=== PATIENT | female | born 1975 | race Caucasian/White ===

== ENCOUNTER 2019-04-26 14:38 | Emergency (ER) | payer OTHER ==
[~2019-04-26] VITALS: Ht 167.6 cm; Wt 86.2 kg
[~2019-04-26 14:38] MED LIST: BUSPAR15 MG PO; ESTRADIOL 1 MG T1 M1 PO; FLONASE 0.05%50 MCG NASAL; IBUPROFEN 800800 M1 PO; NAPROSYN500 MG PO; NORCO 5-325 TA1 EACH PO; WELLBUTRIN SR150 MG PO; ZANAFLEX4 MG PO; ZYRTEC10 M5 PO
[2019-04-26] MEDS ORDERED: EMGALITY120 MG/1 M IM (14:45)
[2019-04-26] MEDS ORDERED: LYRICA 50 MG50 MG PO (14:45)
[2019-04-26] MEDS ORDERED: ALLEGRA ALLERGY60 MG PO (14:45)
[2019-04-26 15:10] LABS: ABSOLUTE BASOPHILS 0.1 thou/uL (0.0-0.2); ABSOLUTE EOSINOPHILS 0.1 thou/uL (0.0-0.7); ABSOLUTE LYMPHOCYTES 2.7 thou/uL (0.8-5.3); ABSOLUTE MONOCYTES 0.6 thou/uL (0.0-1.2); ABSOLUTE NEUTROPHILS 3.9 thou/uL (1.6-8.1); BASOPHILS 1.1 %; EOSINOPHILS 1.1 %; HEMATOCRIT 40.3 % (37.0-47.0); HEMOGLOBIN 14.4 gm/dL (12.0-15.0); LYMPHOCYTES 36.6 %; MCH 31.4 pg (26.0-34.0); MCHC 35.8 g/dL (28.0-37.0); MCV 87.7 fL (80.0-100.0); MONOCYTES 7.9 %; MPV 8.5 fl. (7.2-11.1); NUCLEATED RBCS 0 /100WBC; PLATELET COUNT* 297 thou/uL (150-400); POLYS 53.3 %; RDW-CV 13.5 % (10.5-14.5); WBC 7.4 thou/uL (4.0-11.0)
[2019-04-26 15:20] LABS: CALCIUM 9.1 mg/dL (8.5-10.1); CREATININE 0.8 mg/dL (0.6-1.3); POTASSIUM 3.5 mmol/L (3.5-5.1)
[2019-04-26 15:24] LABS: ALBUMIN 3.8 g/dL (3.4-5.0); TOTAL BILIRUBIN 0.4 mg/dL (<0.1-1.0); TOTAL PROTEIN 6.9 g/dL (6.4-8.2)
[2019-04-26 15:46] LABS: URINE BILIRUBIN NEGATIVE (Negative); URINE BLOOD TRACE (Negative); URINE CLARITY CLEAR; URINE COLOR YELLOW; URINE GLUCOSE-RANDOM NEGATIVE (Negative); URINE KETONES NEGATIVE (Negative); URINE LEUKOCYTES-REFLEX NEGATIVE (Negative); URINE NITRITE-REFLEX NEGATIVE (Negative); URINE PROTEIN NEGATIVE (Negative); URINE SPECIFIC GRAVITY 1.025 (1.005-1.030); URINE UROBILINOGEN 0.2 E.U./dl (0.2-1.0)
[2019-04-26] MEDS ORDERED: OMEPRAZOLE 20 M20 M1 PO (16:39)
[2019-04-26] MEDS ORDERED: NORCO 5-325 TA1 EAC1 PO (16:39)
[2019-04-26] MEDS ORDERED: PEPCID20 MG PO (16:39)
[2019-04-26 16:53] VITALS: BP 122/70
== END 2019-04-26 16:56 | disposition home or self-care (01) ==
LOC: M.ERS 14:38
PROVIDERS: Physician Assistant
DX: R10.11 Right upper quadrant pain (principal); R10.13 Epigastric pain; Z88.1 Allergy status to other antibiotic agents; Z90.710 Acquired absence of both cervix and uterus; Z90.721 Acquired absence of ovaries, unilateral

== ENCOUNTER → 2019-05-29 | Day surgery (SDC) | payer OTHER ==
[~2019-05-29] MED LIST changes: +ALLEGRA ALLERGY60 MG PO; +BENTYL 10 MG CA10 M1 PO; +EMGALITY120 MG/1 M IM; +EMGALITY120 MG/1 M SUBQ; +FLONASE 0.05%50 MCG NARES; +IMITREX4 MG/0.51 SUBQ; +LYRICA 50 MG50 MG PO; +LYRICA 75 MG CA75 MG PO; +NORCO 5-325 TA1 EAC1 PO; +OMEPRAZOLE 20 M20 M1 PO; +PEPCID20 MG PO
[2019-05-29 08:31] LABS: HEMATOCRIT 42.3 % (37.0-47.0); HEMOGLOBIN 15.1 gm/dL (12.0-15.0); MCH 32.1 pg (26.0-34.0); MCHC 35.8 g/dL (28.0-37.0); MCV 89.6 fL (80.0-100.0); MPV 8.6 fl. (7.2-11.1); RBC 4.72 mil/uL (4.20-5.00); RDW-CV 13.3 % (10.5-14.5); WBC 6.5 thou/uL (4.0-11.0)
[2019-05-29 08:43] LABS: CALCIUM 9.2 mg/dL (8.5-10.1); CREATININE 0.8 mg/dL (0.6-1.3); POTASSIUM 3.5 mmol/L (3.5-5.1)
[2019-05-29 08:48] LABS: ALBUMIN 3.9 g/dL (3.4-5.0); TOTAL BILIRUBIN 0.3 mg/dL (<0.1-1.0); TOTAL PROTEIN 7.4 g/dL (6.4-8.2)
--- NOTE | 2019-05-31 17:06 | PATH ---
[facility] [address] [place] [address] PATHOLOGY RPT PROCEDURE Name: JUD JIMENEZ Room: [facility].#: [id number] Admission: 05/29/19 Date of : 75 Discharge: Report #: [id number] Path Case #: [id number] [facility] Accession Number: [id number] . 01 Material submitted: . gallbladder - GALLBLADDER . 01 Clinical history: . Preop DX: CALCULUS OF GALLBLADDER Postop DX: CALCULUS OF GALLBLADDER . 02 Diagnosis: Gallbladder: - Chronic cholecystitis with cholesterolosis. See comment. . (ANN:troy; 05/31/2019) QMS 05/31/2019 1527 Local . 02 Comment: No gallstones are identified in the submitted specimen. . (ANN:troy; 05/31/2019) . 02 Electronically signed: . Jun Gonzalez MD, Pathologist NPI- [id number] . 01 Gross description: . Received in formalin labeled "Jud Jimenez, gallbladder," is an intact, wrinkled gallbladder measuring 6.2 x 2.2 x 1.5 cm in greatest dimensions. The serosal surface is smooth to wrinkled and yellow-green in appearance, displaying scant attached adipose tissue. A defect is noted in the serosal surface, measuring 0.1 x 0.1 cm and extending to within 1.6 cm of the infundibulum. Opening the specimen reveals a dark green mucosa diffusely stippled with prominent yellow highlights and measuring up to 0.2 cm in thickness, with a gallbladder wall thickness of up to 0.2 cm including attached adipose tissue. No polyps or nodules are noted grossly. Calculi are not present within the specimen or specimen container. Sales Order Processor sections of the infundibulum, body and fundus are submitted in cassette A1, to include the serosal surface defect. (DAC; 05/30/2019) XDC/XDC 05/30/2019 08 Local . 02 Pathologist provided ICD-10: K81.1, K82.4 . 02 CPT . [id number] [place] [address] PATHOLOGY RPT PROCEDURE Name: JUD JIMENEZ Room: [facility].#: [id number] Admission: 05/29/19 Date of : 75 Discharge: Report #: [id number] Path Case #: [id number] Specimen Comment: A courtesy copy of this report has been sent to Specimen Comment: [phone], . Specimen Comment: Report sent to / DR YBARRA Performed at: [address], [place], [place] [id number] MD Gaston Dixon MD Phone: [phone] Performed at: 02 [facility] [address], [place], [place] [id number] MD Jun Gonzalez MD Phone: [phone]
--- NOTE | 2019-06-20 13:35 | OP ---
[address] [address] OPERATIVE REPORT Name: JUD BLEVINS Room: [facility]#: [id number] Admission: 05/29/19 Attend Phys: Randall Wagner DO Discharge: Date of : 75 Report #: [id number] THIS REPORT FOR: //name// CC: Randall Sheehan DATE OF SERVICE: 05/29/2019 PREOPERATIVE DIAGNOSIS: Cholelithiasis. POSTOPERATIVE DIAGNOSIS: Cholelithiasis. PROCEDURE: Da Bulmaro robotic-assisted laparoscopic cholecystectomy with Firefly immunofluorescence imaging. SURGEON: Randall Wagner DO NANOSCIENCE TECHNICIAN: Bronwyn Gamez DO, PGY2, resident. SECOND CORRUGATOR OPERATOR: Student, Dr. Radha Vernon, MS4. ANESTHESIA: General endotracheal and TAP blocks. ESTIMATED BLOOD LOSS: 20 mL. COMPLICATIONS: None. REFERRING PHYSICIAN: Maverick Costello DO DESCRIPTION OF PROCEDURE: After obtaining proper consents and discussing risks and complications with the patient, she was taken to the operating room, laid in the supine position, administered general endotracheal anesthetic. She was then prepped and draped in the usual sterile fashion. Timeout was performed. We confirmed the appropriate patient and procedure. Preoperative antibiotics were given. SCDs were in place. We then made a small infraumbilical skin incision with a #11 scalpel blade. This was carried down through the skin into the subcutaneous tissue using electrocautery for hemostasis. Once the fascia was encountered, it was incised along the midline, grasped and elevated with Carol clamps and divided further. The peritoneum was then bluntly opened using a hemostat. A finger was placed inside the peritoneal cavity to assure there were no mary-incisional adhesions. Next, 2-0 Vicryl sutures were placed in a [id number] fashion to secure the da Bulmaro camera port, which was then inserted. Once this was inserted, insufflation was begun. Once insufflation was complete, full visual inspection of the anterior abdominal organs was performed. This revealed a fatty appearing liver. There [place] [address] OPERATIVE REPORT Name: JUD BLEVINS Room: [facility]#: [id number] Admission: 05/29/19 Attend Phys: Randall Wganer DO Discharge: Date of : 75 Report #: [id number] abnormalities identified at this point. We then placed the patient in reverse Trendelenburg position and a da Bulmaro 8.5 mm port was placed in the left upper quadrant. We then placed 2 more da Bulmaro ports in the right upper quadrant. We then docked the da Bulmaro robot. Once the robot was docked, I inserted 2 Gianfranco graspers in the right upper abdomen and a hook cautery in the left upper abdomen. I then broke scrub and went on console. Once on console, I was able to elevate the gallbladder. I identified the hepatoduodenal ligament and Judy's pouch. Then, using immunofluorescence imaging, I was able to identify the common bile duct without any dissection prior to that. Under direct vision, I dissected the hepatoduodenal ligament down until I was able to visualize the cystic duct and cystic artery as they coursed directly into the gallbladder. I obtained a critical view of safety and then placed clips on the cystic duct and cystic artery. These were both divided. I then started taking the gallbladder down off of the liver bed and identified a second artery going into the gallbladder. I used immunofluorescence imaging again to confirm that this was the artery and not an accessory duct. I also again used immunofluorescence imaging to assure that we were well away from the common hepatic duct and common bile duct. I then continued taking the gallbladder off the liver bed. Once this was done, the gallbladder was grasped and elevated with an alligator grasper through arm #3. I then rescrubbed and went back to the patient's bedside. The camera was moved over to arm #1 and then we placed an Endopouch. The gallbladder was placed into the Endopouch along with 2 small clips that had fallen off the clip [employer] as we placed them into the abdomen. We then stopped the insufflation. All air was released, the trocars were removed under direct vision and the gallbladder was removed through the umbilical incision. The umbilical fascia was closed using the 2 previously placed 0 Vicryl sutures plus 2 additional 0 Vicryl suture. Skin incisions were all closed using 4-0 Monocryl subcuticular stitches. Sterile dressings were placed. The patient was then awakened in the operating room and transported to recovery room in stable condition. <ELECTRONICALLY SIGNED> By: Randall Wagner DO 06/20/19 1335 1200 1217Acollins Wagner DO /nt
== END | disposition home or self-care (01) ==
LOC: M.SUR 07:46
PROVIDERS: Surgery
DX: K81.1 Chronic cholecystitis (principal); Z98.890 Other specified postprocedural states; Z88.8 Allergy status to other drugs, medicaments and biological substances; Z79.899 Other long term (current) drug therapy